=== PATIENT | female | born 1980 | race Caucasian/White ===

== ENCOUNTER 2018-04-30 23:47 | Emergency (ER) | payer OTHER ==
[2018-05-01] MEDS ORDERED: PROMETHAZINE HCL 25 MG/ML INJ IVP ONE (00:04)
[2018-05-01] MEDS ORDERED: NS 1,000 ML IV ONE (00:04)
--- NOTE | 2018-05-01 00:04 | EDPHY ---
H & P Stated Complaint: RLQ pain Source: Patient Exam Limitations: No limitations - Personal History Current Tetanus Diphtheria and Acellular Pertussis (TDAP): Yes - Medical/Surgical History Hx Asthma: No Hx Chronic Respiratory Disease: No Hx Diabetes: No Hx Cardiac Disease: No Hx Renal Disease: No Hx Cirrhosis: No Hx Alcoholism: No Hx HIV/AIDS: No Hx Splenectomy or Spleen Trauma: No Other PMH: ORTHO KNEE x7 AND SHOULDER SURG, cholcysectomy - Social History Smoking Status: Light smoker Time Seen by Provider: 05/01/18 00:00 HPI/ROS: HPI: This is a 37-year-old female who presents with Chief Complaint: Right lower quadrant abdominal pain Location: Right lower quadrant abdominal pain Quality: Pain Duration: Since this morning Signs and Symptoms: no fever, + nausea, no vomiting, no hematemesis, no blood in stool, no abdominal bloating, no diarrhea, no back pain, no urinary symptoms , no vaginal bleeding/discharge, no indigestion, no chest pain, no shortness of breath Timing: Gradually worse Severity: Moderate Context: Patient presents with waking up this morning and having dull right lower quadrant pain that has slowly worsened throughout the day. She reports some nausea but no vomiting, fever, urinary signs, diarrhea, back pain. Patient has a history of D&C 5 years ago and has not had menses since that time. She still does have her ovaries. History of cholecystectomy. Patient last ate around 6:00 p.m. Which was a bowl of oatmeal. No recent heavy lifting or vigorous exercise program. Modifying Factors: None Comment: ROS: A comprehensive 10 system review of systems is otherwise negative aside from elements mentioned in the history of present illness. MEDICAL/SURGICAL/SOCIAL HISTORY: Medical history: Generally healthy. Does not take any regular medications. Surgical history: D&C still has her ovaries, ORTHO KNEE x7 AND SHOULDER SURG, cholecystectomy Social history: Employed. with children. Family history noncontributory. CONSTITUTIONAL: Well-developed, well-nourished, physically fit middle-aged white female, and daughter at bedside, awake and alert, no obvious distress HEENT: Atraumatic and normocephalic, PERRL, EOMI. Nares patent; no rhinorrhea; no nasal mucosal edema. Tympanic membranes clear. Oropharynx clear, no exudate and moist pink mucosa. Airway patent. No lymphadenopathy. No meningismus. Cardiovascular: Normal S1/S2, regular rate, regular rhythm, without murmur rub or gallop. PULMONARY/CHEST: Symmetrical and nontender. Clear to auscultation bilaterally. Good air movement. No accessory muscle usage. ABDOMEN: Soft, nondistended, moderate right lower quadrant tenderness, no rebound, no guarding, no peritoneal signs, no masses or organomegaly. No CVAT. EXTREMITIES: 2/2 pulses, strength 5/5, no deformities, no clubbing, no cyanosis or edema. NEUROLOGICAL: no focal neuro deficits. GCS 15. SKIN: Warm and dry, no erythema. no rash. Good capillary refill. (Joleen Prajapati) Constitutional: Initial Vital Signs Temperature (C) 36.8 C 04/30/18 23:50 Heart Rate 85 04/30/18 23:50 Respiratory Rate 20 04/30/18 23:50 Blood Pressure 116/85 H 04/30/18 23:50 O2 Sat (%) 98 04/30/18 23:50 O2 Delivery Mode Room Air Allergies/Adverse Reactions: ondansetron HCl [From Zofran (as hydrochloride)] Allergy (Verified 04/30/18 23: 49) Other-Enter Comments Home Medications: Medication Instructions Recorded oxyCODONE IR 04/30/18 Medical Decision Making - Diagnostics Imaging Results: Pelvic ultrasound shows left-sided pelvic varices which are unknown finding, no acute process. Right lower quadrant ultrasound reveals a nonvisualized appendix. Both studies interpreted by Dr. Becker, direct Radiology. CT scan of the abdomen pelvis shows no appendicitis orbits of diverticulitis or bowel obstruction. Prominence. Uterine vessels consistent with pelvic venous congestion common dilated common bile duct may reflect post cholecystectomy status, 2.8 cm hemangioma in the lateral segment of the liver. Study interpreted by Dr. Awad, direct Radiology. (Haresh Ellison) ED Course/Re-evaluation: Vital signs reviewed and stable upon arrival. No systemic signs. IV access, laboratory studies, urinalysis, pelvic ultrasound, right upper quadrant ultrasound ordered Patient given IV morphine 4 mg, IV Zofran 4 mg and 1 L normal saline 0045: Urinalysis shows 1+ blood, trace LE, 10-15 RBCs;, 2+ bacteria, trace epithelial cells; sent for urine culture 1305: Labs reviewed. Minimal leukocytosis. No anemia, platelet dysfunction, elevated LFTs, electrolyte imbalance, acute kidney injury, pancreatitis. 1305: End of shift. Signed over to Dr. Ellison pending US results , final disposition. This patient was seen under the supervision of my secondary supervising physician. I evaluated care for this patient with attending. Discussed this patient with Dr. Ellison. (Joleen Prajapati) Differential Diagnosis: Abdominal pain including but not limited to appendicitis, cholecystitis, gastritis and urinary tract infection. (Joleen Prajapati) Other Provider: 0100 care assumed from Twan pending ultrasound results. 0130 patient's ultrasounds do not reveal the cause of her pain. She has a nonvisualized appendix. On examination patient has right lower quadrant and right adnexal tenderness. Plan will be to obtain a CT scan to rule out acute appendicitis. 0215 CT scan of the abdomen pelvis shows no acute appendicitis. Pelvic ultrasound shows no findings to suggest her pain. Laboratory evaluations unremarkable. Patient has some hematuria which she said is chronic for her. No findings suggestive of urinary tract infection. No renal calculi. Will treat with Toradol and reassess. Patient is feeling improved. Will right lower abdominal pain of unclear etiology. No findings on her laboratory evaluations or diagnostic studies. Will discharge with hydrocodone to go. Follow up with primary care physician, return if symptoms are not improving. (Haresh Ellison) - Data Points Laboratory Results: Laboratory Results 05/01/18 00:11 05/01/18 00:11 05/01/18 05/01/18 05/01/18 00:11 00:11 00:11 WBC RBC Hgb Hct MCV MCH MCHC RDW Plt Count MPV Neut % (Auto) Lymph % (Auto) [place] % (Auto) Eos % (Auto) Baso % (Auto) Nucleat RBC Rel Count Absolute Neuts (auto) Absolute Lymphs (auto) Absolute Monos (auto) Absolute Eos (auto) Absolute Basos (auto) Absolute Nucleated RBC Immature Gran % Immature Gran # RBC/WBC/PLT Morphology Platelet Estimate Sodium 139 mEq/L mEq/L (135-145) Potassium 3.7 mEq/L mEq/L (3.5-5.2) Chloride 111 mEq/L H mEq/L (97-110) Carbon Dioxide 22 mEq/l mEq/l (22-31) Anion Gap 6 mEq/L mEq/L (6-14) BUN 11 mg/dL mg/dL (7-23) Creatinine 0.6 mg/dL mg/dL (0.6-1.0) Estimated GFR > 60 Glucose 88 mg/dL mg/dL (70-100) Calcium 9.2 mg/dL mg/dL (8.5-10.4) Total Bilirubin 0.4 mg/dL mg/dL (0.1-1.4) Conjugated Bilirubin 0.3 mg/dL mg/dL (0.0-0.5) Unconjugated Bilirubin 0.1 mg/dL mg/dL (0.0-1.1) AST 21 IU/L IU/L (14-46) ALT 12 IU/L IU/L (9-52) Alkaline Phosphatase 43 IU/L IU/L (38-126) Total Protein 6.3 g/dL g/dL (6.3-8.2) Albumin 4.1 g/dL g/dL (3.5-5.0) Lipase 85 IU/L IU/L (23-300) Beta HCG, Qual NEGATIVE Urine Color YELLOW Urine Appearance HAZY Urine pH 5.0 (5.0-7.5) Ur Specific [place] 1.021 (1.002-1.030) Urine Protein NEGATIVE (NEGATIVE) Urine Ketones NEGATIVE (NEGATIVE) Urine Blood 1+ H (NEGATIVE) Urine Nitrate NEGATIVE (NEGATIVE) Urine Bilirubin NEGATIVE (NEGATIVE) Urine Urobilinogen 2.0 EU H EU (0.2-1.0) Ur Leukocyte Esterase TRACE H (NEGATIVE) Urine RBC 10-15 /hpf H /hpf (0-3) Urine WBC 1-3 /hpf /hpf (0-3) Ur Epithelial Cells TRACE /lpf /lpf (NONE-1+) Urine Bacteria 2+ /hpf H /hpf (NONE SEEN) Urine Mucus 3+ /lpf H /lpf (NONE-1+) Urine Glucose NEGATIVE (NEGATIVE) 05/01/18 00:11 WBC 10.38 10^3/uL H 10^3/uL (3.80-9.50) RBC 4.28 10^6/uL 10^6/uL (4.18-5.33) Hgb 13.3 g/dL g/dL (12.6-16.3) Hct 39.9 % % (38.0-47.0) MCV 93.2 fL fL (81.5-99.8) MCH 31.1 pg pg (27.9-34.1) MCHC 33.3 g/dL g/dL (32.4-36.7) RDW 11.9 % % (11.5-15.2) Plt Count 275 10^3/uL 10^3/uL (150-400) MPV 9.9 fL fL (8.7-11.7) Neut % (Auto) 37.0 % L % (39.3-74.2) Lymph % (Auto) 53.1 % H % (15.0-45.0) [place] % (Auto) 5.3 % % (4.5-13.0) Eos % (Auto) 3.5 % % (0.6-7.6) Baso % (Auto) 0.7 % % (0.3-1.7) Nucleat RBC Rel Count 0.0 % % (0.0-0.2) Absolute Neuts (auto) 3.84 10^3/uL 10^3/uL (1.70-6.50) Absolute Lymphs (auto) 5.51 10^3/uL H 10^3/uL (1.00-3.00) Absolute Monos (auto) 0.55 10^3/uL 10^3/uL (0.30-0.80) Absolute Eos (auto) 0.36 10^3/uL 10^3/uL (0.03-0.40) Absolute Basos (auto) 0.07 10^3/uL 10^3/uL (0.02-0.10) Absolute Nucleated RBC 0.00 10^3/uL 10^3/uL (0-0.01) Immature Gran % 0.4 % % (0.0-1.1) Immature Gran # 0.04 10^3/uL 10^3/uL (0.00-0.10) RBC/WBC/PLT Morphology TNP Platelet Estimate TNP Sodium Potassium Chloride Carbon Dioxide Anion Gap BUN Creatinine Estimated GFR Glucose Calcium Total Bilirubin Conjugated Bilirubin Unconjugated Bilirubin AST ALT Alkaline Phosphatase Total Protein Albumin Lipase Beta HCG, Qual Urine Color Urine Appearance Urine pH Ur Specific [place] Urine Protein Urine Ketones Urine Blood Urine Nitrate Urine Bilirubin Urine Urobilinogen Ur Leukocyte Esterase Urine RBC Urine WBC Ur Epithelial Cells Urine Bacteria Urine Mucus Urine Glucose Medications Given: Discontinued Medications Sodium Chloride (Ns) 1,000 mls @ 0 mls/hr IV EDNOW ONE; Wide Open PRN Reason: Protocol Stop: 05/01/18 00:05 Last Admin: 05/01/18 00:15 Dose: 1,000 mls Ketorolac Tromethamine (Toradol) 15 mg IVP EDNOW ONE Stop: 05/01/18 02:21 Last Admin: 05/01/18 02:22 Dose: 15 mg Morphine Sulfate (Morphine) 4 mg IVP EDNOW ONE Stop: 05/01/18 00:05 Last Admin: 05/01/18 00:16 Dose: 4 mg Morphine Sulfate (Morphine) 4 mg IVP EDNOW ONE Stop: 05/01/18 01:07 Last Admin: 05/01/18 01:07 Dose: 4 mg Promethazine HCl (Phenergan) 12.5 mg IVP EDNOW ONE Stop: 05/01/18 00:05 Last Admin: 05/01/18 00:16 Dose: 12.5 mg Departure - Departure Disposition: Home, Routine, Self-Care Clinical Impression: Abdominal pain Condition: Good Instructions: Acute Abdominal Pain (ED), Hydrocodone/Acetaminophen (By mouth) Additional Instructions: You may take hydrocodone 1-2 tablets every 4-6 hours as needed for pain. Follow with primary care physician 1-2 days for further evaluation. Return to the emergency department for worsening pain, fevers, chills, nausea, vomiting, or any other concerns. Referrals: JJ DEWITT [Primary Care Provider] - As per Instructions
[2018-05-01 00:57] LABS: PLATELET COUNT 275 10^3/uL (150-400)
[2018-05-01] MEDS ORDERED: IOPAMIDOL (ISOVUE-300) 100 ML BTL ONE (01:35)
[2018-05-01] MEDS ORDERED: KETOROLAC 15 MG/1 ML SDV IVP ONE (02:20)
[2018-05-01] MEDS ORDERED: HYDROCOD/APAP 5/325 PREPACK#6 BTL TAKEHOME ONE (03:04)
[2018-05-01 03:34] VITALS: BP 97/60
== END 2018-05-01 03:35 | disposition home or self-care (01) ==
DX: R10.31 Right lower quadrant pain (principal); R59.0 Localized enlarged lymph nodes; E86.9 Volume depletion, unspecified
CPT/HCPCS: 96374; J1885; J2270; J2550; Q9967

== ENCOUNTER 2018-05-05 13:15 | Emergency (ER) | payer OTHER ==
[2018-05-05 14:12] LABS: PLATELET COUNT 337 10^3/uL (150-400)
--- NOTE | 2018-05-05 14:13 | EDPHY ---
HPI/HX/ROS/PE/MDM Narrative: CHIEF COMPLAINT: Abdominal pain HPI: This patient is a 37 year old female with history of GERD, cholecystectomy, and multiple orthopedic surgeries. She presents today complaining of lower right abdominal pain. She was evaluated in this emergency department last , five days ago, for similar symptoms and had a negative workup at that time including laboratory studies and CT imaging. Now, she has worsening right lower quadrant pain which is sometimes dull, sometimes sharp, and radiates around her right flank. She cannot identify any known exacerbating factors.Feels better when she bends her knees. She endorses associated nausea, heartburn, and subjective fever. She notes she took her temperature and it was normal. She denies vomiting or diarrhea, no blood in her stool. She has history of cholecystectomy but still has her appendix. No chest pain, shortness of breath, or other associated symptoms. REVIEW OF SYSTEMS: A comprehensive 10 system review of systems is otherwise negative aside from elements mentioned in the history of present illness and medical decision making. PMH: Knee surgeries. Cholecystectomy. GERD. SOCIAL HISTORY: . at bedside. Employed by [employer]. Lives in [place], [place]. PHYSICAL EXAM: General:Patient is alert, in no acute distress. ENT:Eyes are normal to inspection. ENT inspection normal. Neck: Normal inspection. Full range of motion. Respiratory:No respiratory distress. Breath sounds normal bilaterally. Cardiovascular: Regular rate and rhythm. Strong peripheral pulses. Normal cap refill. Abdomen: Moderate tenderness to RLQ . There are no peritoneal signs. There are normal bowel sounds. Back: Normal to inspection. No tenderness to palpation. Skin: Normal color. No rash. Warm and dry. Extremities: Normal appearance. Full range of motion. Neuro: Oriented x3. Normal motor function. Normal sensory function. (Silas Bee) ED Course: 37 y/o female presents with persistent RLQ abdominal pain. Plan for labs including CBC, chemistries, liver, lipase, BHCG. Plan to administer 0.5mg IV Dilaudid and 12.5mg IV Phenergan for symptom relief. 15:00 Plan for US abdomen/pelvis for further evaluation. (Silas Bee) 3:00 p.m.-I assumed care of this patient at shift change. She presents with a 5 day history of right lower quadrant pain. Previous studies including CT scan of the abdomen and pelvis were unremarkable. A normal appendix was visualized. This morning she had worsening pain, associated with nausea and subjective fever. This prompted her return visit. Abdomen is soft, mild right lower quadrant tenderness, no peritoneal signs. Laboratory tests are unchanged from the previous visit. Ultrasound of the right lower quadrant is pending. Patient requests pain medication. History of chronic pain, on pain management. 4:45 p.m.: The appendix is visualized on ultrasound and appear similar to previously seen appendix on CT scan, measuring 7 mm in length. The CT scan was also reviewed by the radiologist and reveals multiple lymph nodes in the right lower quadrant, consistent with mesenteric adenitis. Results discussed with the patient. She understands that she may certainly have mesenteric adenitis. I doubt that she has acute appendicitis, given similar appearance of the appendix today. I will have her follow up with surgery in the office. Dr Montero was consulted and will see the pt at 11:30am tomorrow. (Citlalli Hayden) - Data Points Imaging Results: Imaging Impressions Pelvic/Renal Ultrasound 05/05/18 14:57 Impression: Essentially unremarkable pelvic ultrasound. Ayesha Hayden was notified of these findings by telephone at 4:38 PM on 05/05/2018 Laboratory Results: Laboratory Results 05/05/18 13:50 05/05/18 13:50 05/05/18 05/05/18 05/05/18 13:50 13:50 13:50 WBC 10.45 10^3/uL H 10^3/uL (3.80-9.50) RBC 4.95 10^6/uL 10^6/uL (4.18-5.33) Hgb 15.7 g/dL g/dL (12.6-16.3) Hct 46.5 % % (38.0-47.0) MCV 93.9 fL fL (81.5-99.8) MCH 31.7 pg pg (27.9-34.1) MCHC 33.8 g/dL g/dL (32.4-36.7) RDW 12.0 % % (11.5-15.2) Plt Count 337 10^3/uL 10^3/uL (150-400) MPV 9.7 fL fL (8.7-11.7) Neut % (Auto) 55.5 % % (39.3-74.2) Lymph % (Auto) 36.9 % % (15.0-45.0) [place] % (Auto) 4.8 % % (4.5-13.0) Eos % (Auto) 2.1 % % (0.6-7.6) Baso % (Auto) 0.5 % % (0.3-1.7) Nucleat RBC Rel Count 0.0 % % (0.0-0.2) Absolute Neuts (auto) 5.80 10^3/uL 10^3/uL (1.70-6.50) Absolute Lymphs (auto) 3.86 10^3/uL H 10^3/uL (1.00-3.00) Absolute Monos (auto) 0.50 10^3/uL 10^3/uL (0.30-0.80) Absolute Eos (auto) 0.22 10^3/uL 10^3/uL (0.03-0.40) Absolute Basos (auto) 0.05 10^3/uL 10^3/uL (0.02-0.10) Absolute Nucleated RBC 0.00 10^3/uL 10^3/uL (0-0.01) Immature Gran % 0.2 % % (0.0-1.1) Immature Gran # 0.02 10^3/uL 10^3/uL (0.00-0.10) Sodium 140 mEq/L mEq/L (135-145) Potassium 3.7 mEq/L mEq/L (3.5-5.2) Chloride 106 mEq/L mEq/L (97-110) Carbon Dioxide 23 mEq/l mEq/l (22-31) Anion Gap 11 mEq/L mEq/L (6-14) BUN 9 mg/dL mg/dL (7-23) Creatinine 0.6 mg/dL mg/dL (0.6-1.0) Estimated GFR > 60 Glucose 96 mg/dL mg/dL (70-100) Calcium 10.7 mg/dL H mg/dL (8.5-10.4) Phosphorus 4.0 mg/dL mg/dL (2.5-4.5) Total Bilirubin 0.4 mg/dL mg/dL (0.1-1.4) Conjugated Bilirubin 0.3 mg/dL mg/dL (0.0-0.5) Unconjugated Bilirubin 0.1 mg/dL mg/dL (0.0-1.1) AST 36 IU/L IU/L (14-46) ALT 21 IU/L IU/L (9-52) Alkaline Phosphatase 53 IU/L IU/L (38-126) Total Protein 7.7 g/dL g/dL (6.3-8.2) Albumin 5.0 g/dL g/dL (3.5-5.0) Lipase 75 IU/L IU/L (23-300) Beta HCG, Qual NEGATIVE Urine Color Urine Appearance Urine pH Ur Specific [place] Urine Protein Urine Ketones Urine Blood Urine Nitrate Urine Bilirubin Urine Urobilinogen Ur Leukocyte Esterase Urine RBC Urine WBC Ur Epithelial Cells Urine Bacteria Urine Mucus Urine Glucose 05/05/18 13:35 WBC RBC Hgb Hct MCV MCH MCHC RDW Plt Count MPV Neut % (Auto) Lymph % (Auto) [place] % (Auto) Eos % (Auto) Baso % (Auto) Nucleat RBC Rel Count Absolute Neuts (auto) Absolute Lymphs (auto) Absolute Monos (auto) Absolute Eos (auto) Absolute Basos (auto) Absolute Nucleated RBC Immature Gran % Immature Gran # Sodium Potassium Chloride Carbon Dioxide Anion Gap BUN Creatinine Estimated GFR Glucose Calcium Phosphorus Total Bilirubin Conjugated Bilirubin Unconjugated Bilirubin AST ALT Alkaline Phosphatase Total Protein Albumin Lipase Beta HCG, Qual Urine Color YELLOW Urine Appearance CLEAR Urine pH 8.0 H (5.0-7.5) Ur Specific [place] 1.009 (1.002-1.030) Urine Protein NEGATIVE (NEGATIVE) Urine Ketones NEGATIVE (NEGATIVE) Urine Blood 1+ H (NEGATIVE) Urine Nitrate NEGATIVE (NEGATIVE) Urine Bilirubin NEGATIVE (NEGATIVE) Urine Urobilinogen NEGATIVE EU EU (0.2-1.0) Ur Leukocyte Esterase NEGATIVE (NEGATIVE) Urine RBC 5-10 /hpf H /hpf (0-3) Urine WBC 1-3 /hpf /hpf (0-3) Ur Epithelial Cells TRACE /lpf /lpf (NONE-1+) Urine Bacteria 1+ /hpf H /hpf (NONE SEEN) Urine Mucus TRACE /lpf /lpf (NONE-1+) Urine Glucose NEGATIVE (NEGATIVE) Medications Given: Discontinued Medications Hydromorphone HCl (Dilaudid) 0.5 mg IVP EDNOW ONE Stop: 05/05/18 14:59 Last Admin: 05/05/18 15:29 Dose: 0.5 mg Ketorolac Tromethamine (Toradol) 30 mg IVP EDNOW ONE Stop: 05/05/18 15:23 Last Admin: 05/05/18 15:31 Dose: 30 mg Promethazine HCl (Phenergan) 12.5 mg IVP EDNOW ONE Stop: 05/05/18 14:17 Last Admin: 05/05/18 14:21 Dose: 12.5 mg General Time Seen by Provider: 05/05/18 13:56 Initial Vital Signs: Initial Vital Signs Temperature (C) 37.2 C 05/05/18 13:34 Heart Rate 110 H 05/05/18 13:34 Respiratory Rate 16 05/05/18 13:34 Blood Pressure 121/79 H 05/05/18 13:34 O2 Sat (%) 95 05/05/18 13:34 O2 Delivery Mode Room Air Allergies/Adverse Reactions: ondansetron HCl [From Zofran (as hydrochloride)] Allergy (Verified 05/05/18 13: 34) Other-Enter Comments Home Medications: Medication Instructions Recorded oxyCODONE IR 04/30/18 Departure - Departure Disposition: Home, Routine, Self-Care Clinical Impression: Abdominal pain Qualifiers: Abdominal location: right lower quadrant Qualified Code(s): R10.31 - Right lower quadrant pain Condition: Good Instructions: Acute Abdominal Pain (ED) Additional Instructions: You have multiple lymph nodes in the right lower quadrant of your abdomen. This is consistent with mesenteric adenitis, which can cause right lower quadrant pain. Sometimes we are unable to diagnose an obvious cause of abdominal pain in the Emergency Department. Based upon our evaluation today, we see no obvious explanation for your pain. Because more serious conditions can be difficult to diagnose early in the course of their presentation, we ask that you return to the Emergency Department in 12-24 hours for a recheck if you are still having pain. This is necessary to exclude the development of a more serious condition such as appendicitis or other intra-abdominal emergency. In the event your pain markedly increases before that time or you develop intractable vomiting or fever return to the Emergency Department immediately. I suggest clear liquids for 24 hr. You may continue taking your usual pain medications at home. Ibuprofen instructions Referrals: JJ DEWITT [Primary Care Provider] - 1 day without fail Yanelis Montero MD [Medical Doctor] - As per Instructions (You have an appointment with Dr. Montero at 11/30am tomorrow.) Report Scribed for: Silas Bee Report Scribed by: Massiel Dsouaz Date of Report: 05/05/18 Time of Report: 14:13 Physician Review and Approval Statement: Portions of this note were transcribed by an ED scribe. I personally performed the history, physical exam, and medical decision making; and confirm the accuracy of the information in the transcribed note.
[2018-05-05] MEDS ORDERED: PROMETHAZINE HCL 25 MG/ML INJ IVP ONE (14:16)
[2018-05-05] MEDS ORDERED: HYDROmorphONE/DILAUDID 2 MG/ML INJ IVP ONE (14:58)
[2018-05-05] MEDS ORDERED: KETOROLAC 15 MG/1 ML SDV IVP ONE (15:22)
[2018-05-05 17:16] VITALS: BP 105/67
== END 2018-05-05 17:16 | disposition home or self-care (01) ==
DX: R10.31 Right lower quadrant pain (principal); Z87.19 Personal history of other diseases of the digestive system
CPT/HCPCS: 96374; J1170; J1885; J2550

== ENCOUNTER 2018-05-07 11:29 | Day surgery (SDC) | payer OTHER ==
--- NOTE | 2018-05-07 11:23 | PDHPUP ---
History & Physical Update H&P update statement: This history and physical update is based on an assessment of the patient which was completed after admission or registration (within 24 hours), but prior to the surgery/procedure. H&P update: H&P reviewed & patient examined, no change in patient's condition since H&P completed
[2018-05-07] MEDS ORDERED: ceFAZolin 2 GM/DEXTROSE 100 ML IV ONE (11:39)
[2018-05-07] MEDS ORDERED: LR 1,000 ML IV ONE (11:41)
[2018-05-07] MEDS ORDERED: BUPIVACAINE 0.5% 30 ML SDV ONE (11:56)
[2018-05-07] MEDS ORDERED: MIDAZOLAM 2 MG/2 ML VIAL ONE (13:10)
[2018-05-07] MEDS ORDERED: PROPOFOL/EMULSION 500 MG/50 ML BOTTLE IV ONE (13:11)
[2018-05-07] MEDS ORDERED: fentaNYL 100 MCG/2 ML INJ ONE (13:11)
[2018-05-07] MEDS ORDERED: MAGNESIUM SULFATE 1 GM/2 ML VIAL ONE (13:29)
[2018-05-07] MEDS ORDERED: ALBUTEROL 3 ML DEYVIAL IH PRN (13:39)
[2018-05-07] MEDS ORDERED: DIAZEPAM 5 MG/ML 1 ML SYR IVP PRN (13:39)
[2018-05-07] MEDS ORDERED: LR 500 ML IV PRN (13:39)
[2018-05-07] MEDS ORDERED: NALOXONE HCL 0.4 MG/ML INJ IVP PRN (13:39)
[2018-05-07] MEDS ORDERED: PROMETHAZINE HCL 25 MG/ML INJ IVP PRN (13:39)
[2018-05-07] MEDS ORDERED: DEXAMETHASONE 4 MG/ML VIAL IVP PRN (13:39)
[2018-05-07] MEDS ORDERED: HYDROCODONE/APAP 5/325 TAB PO PRN (13:39)
[2018-05-07] MEDS ORDERED: oxyCODONE IR 5 MG TAB PO PRN (13:39)
[2018-05-07] MEDS ORDERED: METOCLOPRAMIDE 10 MG/2 ML VIAL IVP PRN (13:39)
--- NOTE | 2018-05-07 13:39 | PDANEPAE ---
ANE Past Medical History - Cardiovascular History Hx Hypertension: No Hx Arrhythmias: No Hx Chest Pain: No Hx Coronary Artery / Peripheral Vascular Disease: No Hx CHF / Valvular Disease: No Hx Palpitations: No Cardiovascular History Comment: NO CP - Pulmonary History Hx COPD: No Hx Asthma/Reactive Airway Disease: No Hx Recent Upper Respiratory Infection: No Hx Oxygen in Use at Home: No Hx Sleep Apnea: No Pulmonary History Comment: DENIES SOB W STAIRS - Neurologic History Hx Cerebrovascular Accident: No Hx Seizures: No Hx Dementia: No - Endocrine History Hx Diabetes: No - Renal History Hx Renal Disorders: No Renal History Comment: INCONTINENCE - Liver History Hx Hepatic Disorders: No - Neurological & Psychiatric Hx Hx Neurological and Psychiatric Disorders: No - Cancer History Hx Cancer: No - Congenital Disorder History Hx Congenital Disorders: No - GI History Hx Gastrointestinal Disorders: No - Other Health History Other Health History: MISSING TOOTH BACK LOWER L - Chronic Pain History Chronic Pain: No (MARIUSZ KNEE) - Surgical History Prior Surgeries: CRISTINA. R KNEE SURG X8 MOST RECENT 01/2014. L SHOULDER. D AND C. ABLATION, HYSTEROSCOPY,VAG SLING -2013 ANE Review of Systems Review of Systems: - Exercise capacity METS (RN): 5 METS ANE Patient History - Allergies Allergies/Adverse Reactions: ondansetron HCl [From Zofran (as hydrochloride)] Allergy (Verified 05/05/18 13: 34) Other-Enter Comments - Home Medications Home Medications: oxyCODONE IR 04/30/18 [Last Taken 05/06/18 2100] - NPO status NPO Since - Liquids (Date): 05/06/18 NPO Since - Liquids (Time): 23:30 NPO Since - Solids (Date): 05/06/18 NPO Since - Solids (Time): 21:00 - Smoking Hx Smoking Status: Current every day smoker - Family Anes Hx Family Hx Anesthesia Complications: NONE ANE Labs/Vital Signs - Vital Signs Blood Pressure: 114/75 Heart Rate: 83 Respiratory Rate: 16 O2 Sat (%): 97 Height: 167.64 cm Weight: 54.431 kg ANE Physical Exam - Airway Neck exam: FROM Mallampati Score: Class 1 Mouth exam: normal dental/mouth exam - Pulmonary Pulmonary: no respiratory distress, no rales or rhonchi, clear to auscultation - Cardiovascular Cardiovascular: regular rate and rhythym, no murmur, rub, or gallop - ASA Status ASA Status: II ANE Anesthesia Plan Anesthesia Plan: general endotracheal anesthesia
[2018-05-07] MEDS ORDERED: METOCLOPRAMIDE 10 MG/2 ML VIAL ONE (13:46)
[2018-05-07] MEDS ORDERED: KETOROLAC 30 MG/1 ML SDV ONE (13:46)
[2018-05-07] MEDS ORDERED: LIDOCAINE 2% 5 ML SDV ONE (13:46)
[2018-05-07] MEDS ORDERED: DEXAMETHASONE 4 MG/ML VIAL ONE (13:46)
[2018-05-07] MEDS ORDERED: ROCURONIUM 50 MG/5 ML VIAL ONE (13:46)
[2018-05-07] MEDS ORDERED: PHENYLEPHRINE HCL 100 MCG/ML SYR ONE (13:46)
[2018-05-07] MEDS ORDERED: SUGAMMADEX SODIUM 200 MG/2 ML VIAL IVP ONE (13:46)
--- NOTE | 2018-05-07 13:52 | POSTOPPROG ---
Post Op Note Date of Operation: 05/07/18 Surgeon: Yanelis Montero Anesthesiologist: zacarias Pre-op Diagnosis: RLQ pain Post-op Diagnosis: same Indication: 37 yo with persistent rlq pain Procedure: lap appy Findings: no unusual slightly enlarged appendix Inf/Abcess present in the surg proc area at time of surgery?: No EBL: Minimal Specimen(s): appendix
--- NOTE | 2018-05-07 14:04 | POSTANESTH ---
Post Anesthetic Evaluation Cardiovascular Status: Normal, Stable, Similar to Pre-Op Cond Respiratory Status: Normal, Stable, Similar to Pre-op Cond. Level of Consciousness/Mental Status: Moderately Sleepy Pain Control: Adequate, Prn Tx Ordered Nausea/Vomiting Control: Adequate, Prn Tx Ordered Complications Possibly Related to Anesthesia: None Noted
[2018-05-07] MEDS: fentaNYL 100 MCG/2 ML INJ IVP PRN ×2 (14:11→14:30)
[2018-05-07] MEDS ORDERED: oxyCODONE IR 5 MG TAB ONE (14:56)
[2018-05-07 15:32] VITALS: BP 112/75
--- NOTE | 2018-05-08 00:59 | GOP ---
[f rep st] OPERATIVE REPORT DATE OF OPERATION: 05/07/2018 SURGEON: Yanelis Montero MD ANESTHESIOLOGIST: Krystin Steel MD. General. PREOPERATIVE DIAGNOSIS: Persistent right lower quadrant pain. POSTOPERATIVE DIAGNOSIS: Persistent right lower quadrant pain. PROCEDURE PERFORMED: Laparoscopic appendectomy. FINDINGS: Slightly enlarged appendix. SPECIMENS: Appendix. ESTIMATED BLOOD LOSS: 5 cc. INDICATIONS: The patient is a 37-year-old woman who has developed abdominal pain. She has presented to the emergency room twice. CT scan showed a 7 mm appendix with no mesenteric adenitis. She had r eturned to the ER and had an ultrasound that did not show any changes. There were no secondary signs of appendicitis. I saw her in the office yesterday at which time she was feeling better. She was i nstructed to call if the pain persisted. She called this morning and the pain was periumbilical, rad iating to the right lower quadrant. Due to the constellation of symptoms and repeat visits, we decid ed to go to the operating room for diagnostic laparoscopy with laparoscopic appendectomy. DESCRIPTION OF PROCEDURE: The patient was taken to the operating room, placed supine on the table, a nd general anesthesia was administered. Her abdomen was prepped and draped in the usual sterile fash ion. Infiltrated all sites with 0.5% Marcaine prior to making incision. Made an incision below her umbilicus. I elevated it. I inserted the Veress needle. It passed the hanging drop test. Her abdo men insufflated easily to a pressure of 15 mmHg. I placed a 5 mm trocar with a camera at this site. There were no injuries from Veress needle placement. I placed a 5 mm suprapubic trocar and a 10 mm trocar in the left lower quadrant. I had to mobilize the terminal ileum in order to expose the retro cecal appendix. Once I was able to expose the appendix, it was long and a bit more firm than usual. I divided the mesoappendix with the Harmonic scalpel. I transected the base with an Endo-MONISHA 45 whi te load. It was placed in an EndoCatch bag and retrieved with a 10 mm trocar. I explored her small bowel. I did not see any twisting, torsion, or Meckel's diverticulum. I explored her abdomen. Both her fallopian tubes and ovaries looked normal. I did not see any evidence of adhesions. Her liver and stomach looked normal as well as well as the remaining small bowel and large bowel. Ports were r emoved under direct vision. Abdomen allowed to desufflate. Fascia at the 10 mm trocar site was clos ed with 0 Vicryl, skin closed with 4-0 Monocryl, Dermabond applied. She was awakened in the operatin g room, extubated, transferred to PACU in stable condition. /[id number]/MODL
== END 2018-05-07 15:40 | disposition home or self-care (01) ==
LOC: FSGY 11:29
PROVIDERS: ATTEND Surgery
PROC: 0DTJ4ZZ Resection of Appendix, Percutaneous Endoscopic Approach (ICD-10-PCS; principal; 2018-05-07 13:45)
DX: R10.31 Right lower quadrant pain (principal); M25.561 Pain in right knee; M25.562 Pain in left knee; Z87.39 Personal history of other diseases of the musculoskeletal system and connective tissue
CPT/HCPCS: J0690; J1100; J1885; J2250; J2370; J2704; J2765; J3010; J3475

== ENCOUNTER 2018-07-20 05:53 | Day surgery (SDC) | payer OTHER ==
--- NOTE | 2018-07-19 15:14 | PDGENHP ---
History & Physical Chief Complaint: R knee pain History of Present Illness: Chief Complaint. None recorded. Patient's Care Team. Referring Provider: BENJAMÍN CHISHOLM MD: [address] [facility], [place] [address], , . Primary Care Provider: GIANLUCA DEWITT MD: [address] [place] [address], , . Orthopedic Surgeon: IAN OCONNOR MD: [id number] [facility], [place] [address], , Fax . Vitals. None recorded. Allergies. Allergies not reviewed (last reviewed 06/18/2018). NKDA. Medications. Medications not reviewed (last reviewed 06/18/2018). Advil 200 mg tablet. Take 3 tablet(s) every 6 hours by oral route. [facility]. ALPRAZolam 0.25 mg tablet. 10/14/14 [facility]. ALPRAZolam 0.5 mg tablet. 09/07/15 [facility]. cephALEXin 500 mg capsule. 03/30/15 [facility]. Chantix Starting Month Box 0.5 mg (11)-1 mg (42) tablets in dose pack. 08/07/17 [facility]. cyclobenzaprine 5 mg tablet. 11/29/14 [facility]. Flector 1.3 % transdermal 12 hour patch. Apply 1 patch(es) every 12 hours by transdermal route as needed. 03/01/16 Bethany Oconnor M.D. HYDROcodone 5 mg- acetaminophen 325 mg tablet. Take 1 tablet every 4-6 hours by oral route as needed for pain. 02/08/16 [facility]. HYDROmorphone 2 mg tablet. 07/13/18 [facility]. meloxicam 15 mg tablet. [facility]. methylPREDNISolone 4 mg tablets in a dose pack. 08/07/15 [facility]. oxyCODONE 5 mg tablet. Take 1 tablet by oral route every 6 hours as needed for pain. 05/07/18 filledsurescripts. oxyCODONE-acetaminophen 10 mg-325 mg tablet. TK 1 T PO Q 6 H. 07/01/18 filledsurescripts. oxyCODONE-acetaminophen 5 mg-325 mg tablet. 12/29/15 [facility]. oxyCODONE-acetaminophen 7.5 mg-325 mg tablet. 01/10/15 [facility]. predniSONE 20 mg tablet. 12/28 [facility]. Vicodin 5 mg-300 mg tablet. 09/12/15 [facility]. Vaccines. None recorded. Problems. Reviewed Problems. Chondromalacia of patella. Crushing injury of hand. Arthrofibrosis of right knee - Onset: 06/18/2018. Family History. Family History not reviewed (last reviewed 06/18/2018). Social History. Social History not reviewed (last reviewed 06/18/2018). Smoking Status: Current every day smoker. 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 Employer: [employer]. Chewing tobacco: none. Alcohol intake: None. Caffeine intake: Occasional. Exercise level: Occasional. Hand Dominance: Right. Education: 2 Year College. Live alone or with others?: with others. Surgical History. Surgical History not reviewed (last reviewed 06/18/2018). Orthopaedic Surgery - 8 KNEE SURGERY R. Knee arthroscopy (surg) - 12/01/2015. Orthopaedic Surgery - 03/20/2015 - LEFT KNEE. Other - 2013 - UTERINE ABLATION. Orthopaedic Surgery - 2007 - LEFT SHOULDER. Other - 2003 - GALLBLADDER. CLIENT TECHNICAL SUPPORT ASSOCIATE History. (not configured). Obstetric History. None recorded. Past Pregnancies. None recorded. Past Medical History. Past Medical History not reviewed (last reviewed 06/18/2018). Have you had a blood transfusion since 1979: Y - 1979. Screening. None recorded. HPI. The patient presents today for further discussion regarding treatment for her right knee in anticipation for surgical intervention. ROS. ROS as noted in the HPI. Physical Exam. Patient is a 37-year-old female. Exam unchanged from previous: Physical exam of the B knees demonstrate moderate retropatellar crepitation with active extension (R>L) Extension full and symmetrical with the opposite side. Flexion symmetrical with a pop in the right knee with passive flexion. McMurrys negative to a limited exam. Ligament exam negative. NTTP overlying the parapatellar region. NVI. Assessment / Plan. 37 year old female with arthrofibrosis and symptomatic chondromalacia of right patella. I went through a lengthy discussion with the patient regarding the procedure, risks, benefits, the recovery phase, and the anticipated outcome of a right knee arthroscopy with partial menisectomy and chondroplasty. All of their questions were answered. The patient expressed interest in proceeding and signed the informed consent form. Surgery is scheduled for the near future. Follow up post-operatively. 1. Arthrofibrosis of right knee. M24.661: Ankylosis, right knee. 2. Chondromalacia of patella. M22.41: Chondromalacia patellae, right knee
[2018-07-20] MEDS ORDERED: ceFAZolin 2 GM/DEXTROSE 100 ML IV ONE (06:04)
[2018-07-20] MEDS ORDERED: LR 1,000 ML IV ONE (06:05)
[2018-07-20] MEDS ORDERED: LIDOCAINE 1% 2 ML INJ ID PRN (06:05)
--- NOTE | 2018-07-20 06:19 | PDHPUP ---
History & Physical Update H&P update statement: This history and physical update is based on an assessment of the patient which was completed after admission or registration (within 24 hours), but prior to the surgery/procedure. H&P update: H&P reviewed & patient examined
[2018-07-20] MEDS ORDERED: MIDAZOLAM 2 MG/2 ML VIAL IVP ONE (06:48)
--- NOTE | 2018-07-20 06:51 | PDANEPAE ---
ANE History of Present Illness R Knee scope and chondroplasty ANE Past Medical History - Cardiovascular History Hx Hypertension: No Hx Arrhythmias: No Hx Chest Pain: No Hx Coronary Artery / Peripheral Vascular Disease: No Hx CHF / Valvular Disease: No Hx Palpitations: No Cardiovascular History Comment: NO CP - Pulmonary History Hx COPD: No Hx Asthma/Reactive Airway Disease: No Hx Recent Upper Respiratory Infection: No Hx Oxygen in Use at Home: No Hx Sleep Apnea: No Sleep Apnea Screening Result - Last Documented: Negative Pulmonary History Comment: DENIES SOB W STAIRS - Neurologic History Hx Cerebrovascular Accident: No Hx Seizures: No Hx Dementia: No - Endocrine History Hx Diabetes: No - Renal History Hx Renal Disorders: No Renal History Comment: INCONTINENCE - Liver History Hx Hepatic Disorders: No - Neurological & Psychiatric Hx Hx Neurological and Psychiatric Disorders: No - Cancer History Hx Cancer: No - Congenital Disorder History Hx Congenital Disorders: No - GI History Hx Gastrointestinal Disorders: No - Other Health History Other Health History: MISSING TOOTH BACK LOWER L. CHRONIC ISSUES WITH MARIUSZ KNEES - Chronic Pain History Chronic Pain: Yes (MARIUSZ KNEE) - Surgical History Prior Surgeries: APPENDECTOMY 05/07/18. CRISTINA. R KNEE SURG X8 MOST RECENT 2013. L SHOULDER. D AND C. ABLATION, HYSTEROSCOPY,VAG SLING -2013 ANE Review of Systems Review of Systems: - Exercise capacity METS (RN): 4 METS ANE Patient History - Allergies Allergies/Adverse Reactions: ondansetron HCl [From Zofran (as hydrochloride)] Adverse Reaction (Intermediate , Verified 07/20/18 06:51) Other-Enter Comments - Home Medications Home medications: home medication list seen and reviewed Home Medications: Percocet 10-325 mg Tablet QID 07/14/18 [Last Taken 07/19/18 23:00] - NPO status NPO Status: no food or drink >8 hours NPO Since - Liquids (Date): 07/19/18 NPO Since - Liquids (Time): 23:30 NPO Since - Solids (Date): 07/19/18 NPO Since - Solids (Time): 23:30 - Anes Hx Anes Hx: no prior problems - Smoking Hx Smoking Status: Heavy smoker - Alcohol Use Alcohol Use: Rarely - Family Anes Hx Family Anes Hx: none Family Hx Anesthesia Complications: NONE ANE Labs/Vital Signs - Vital Signs Blood Pressure: 107/69 Heart Rate: 94 Respiratory Rate: 16 O2 Sat (%): 97 Height: 167.64 cm Weight: 54.431 kg ANE Physical Exam - Airway Neck exam: FROM Mallampati Score: Class 2 Mouth exam: poor dentition - Pulmonary Pulmonary: no respiratory distress - Cardiovascular Cardiovascular: regular rate and rhythym - ASA Status ASA Status: II ANE Anesthesia Plan Anesthesia Plan: GA w LMA
[2018-07-20] MEDS ORDERED: PROPOFOL/EMULSION 500 MG/50 ML BOTTLE IV ONE (07:20)
[2018-07-20] MEDS ORDERED: fentaNYL 100 MCG/2 ML INJ ONE ×2 (07:20→09:20)
[2018-07-20] MEDS ORDERED: RANITIDINE 50 MG/2 ML VIAL ONE (07:21)
[2018-07-20] MEDS ORDERED: LIDOCAINE 2% 100 MG/5 ML SYR ONE (07:21)
[2018-07-20] MEDS ORDERED: LIDOCAINE 2% JELLY 6 ML TOPICAL SYR ONE (07:21)
[2018-07-20] MEDS ORDERED: DEXAMETHASONE 4 MG/ML VIAL ONE ×2 (07:21)
[2018-07-20] MEDS ORDERED: HYDROCODONE/APAP 5/325 TAB PO PRN (08:33)
[2018-07-20] MEDS ORDERED: ALBUTEROL 3 ML DEYVIAL IH PRN (08:33)
[2018-07-20] MEDS ORDERED: fentaNYL 100 MCG/2 ML INJ IVP PRN (08:33)
[2018-07-20] MEDS ORDERED: MEPERIDINE 25 MG/0.5 ML AMP IVP PRN (08:33)
[2018-07-20] MEDS ORDERED: oxyCODONE IR 5 MG TAB PO PRN (08:33)
[2018-07-20] MEDS ORDERED: NALOXONE HCL 0.4 MG/ML INJ IVP PRN (08:33)
[2018-07-20] MEDS ORDERED: PHENYLEPHRINE HCL 100 MCG/ML SYR IVP PRN (08:33)
[2018-07-20] MEDS ORDERED: ACETAMINOPHEN 500 MG TAB PO PRN (08:33)
[2018-07-20] MEDS ORDERED: PROMETHAZINE HCL 25 MG/ML INJ IVP PRN (08:33)
[2018-07-20] MEDS ORDERED: METOCLOPRAMIDE 10 MG/2 ML VIAL IVP PRN (08:33)
[2018-07-20] MEDS ORDERED: LR 500 ML IV PRN (08:33)
[2018-07-20 10:18] VITALS: BP 103/69
--- NOTE | 2018-07-20 10:43 | POSTANESTH ---
Post Anesthetic Evaluation Cardiovascular Status: Normal, Stable Respiratory Status: Normal, Stable Level of Consciousness/Mental Status: Can Participate in Eval Pain Control: Adequate, Prn Tx Ordered Nausea/Vomiting Control: Adequate, Prn Tx Ordered Complications Possibly Related to Anesthesia: None Noted
--- NOTE | 2018-07-20 19:50 | GOP ---
[f rep st] OPERATIVE REPORT DATE OF OPERATION: 07/20/2018 SURGEON: Cheikh Mukherjee MD CUTTING TABLE OPERATOR: Yue Montague PA-C. ANESTHESIA: General. PREOPERATIVE DIAGNOSIS: Right knee patellofemoral chondromalacia with associated scar tissue in the anterior compartment of the knee. POSTOPERATIVE DIAGNOSIS: Right knee patellofemoral chondromalacia with associated scar tissue in the anterior compartment of the knee. PROCEDURE PERFORMED: 1. Arthroscopic patellofemoral chondroplasty. 2. Debridement of scar tissue in the anterior compartment, right knee. FINDINGS: ESTIMATED BLOOD LOSS: 5 cc. INDICATIONS: This patient is a 37-year-old female who has had knee pain which failed to respond to c onservative management. MRI scan shows evidence of scar tissue in the anterior compartment of her kn ee. She has associated chondral disease in the patellofemoral compartment. She is admitted for arth roscopic evaluation. DESCRIPTION OF PROCEDURE: After the induction of a general anesthetic, the patient was placed on the operating room table in a supine position. Her right knee cap and thigh were prepped and draped in usual fashion. Standard arthroscopic portals were utilized. The scope was introduced through the me dial portal and the knee examined. The suprapatellar pouch was unremarkable. The patellofemoral com partment showed a focal area of grade 3 retropatellar chondral change. There were minimal unstable c omponents which were debrided with a rotary debrider. The area involved involved the inferior aspect of the patella and measured approximately a centimeter in diameter. The femoral trochlear groove wa s in excellent condition. The scope was passed into the intercondylar notch where the ACL appeared to be intact. The medial an d lateral compartments were pristine. There was a band of synovial scar just distal to the distal aspect of patellar articular surface whic h appeared to chafing the articular margin of the inferior pole of the patella. There was neurovascu lar change surrounding it. It was felt that this was likely the cause for the patient's pain. This was resected with a rotary debrider. There was a focal area of scar tissue in the anterior compartment just anterior to the tibial attachm ent of the ACL. This was minimally debrided. At this point, the arthroscopic equipment was removed from the knee. The portals were then infiltrat ed with 0.25% Marcaine solution before being closed with 5-0 Vicryl. Steri-Strips and a sterile comp ressive dressing were applied and the patient was awakened from the anesthetic. There were no intrao perative complications. COMPLICATIONS: None. /[id number]/MODL
== END 2018-07-20 10:10 | disposition home or self-care (01) ==
LOC: FSGY 05:53
PROVIDERS: ATTEND Orthopaedic Surgery
PROC: 0SBC4ZZ Excision of Right Knee Joint, Percutaneous Endoscopic Approach (ICD-10-PCS; principal; 2018-07-20 07:15)
DX: M22.41 Chondromalacia patellae, right knee (principal); M65.861 Other synovitis and tenosynovitis, right lower leg; F17.200 Nicotine dependence, unspecified, uncomplicated
CPT/HCPCS: J0690; J1100; J2001; J2250; J2704; J2780; J3010